=== PATIENT | female | born 1935 | race Caucasian/White ===

== ENCOUNTER 2022-02-06 06:36 | Day surgery (SDC) | payer OTHER ==
[~2022-02-06] VITALS: Ht 157.5 cm; Wt 78.0 kg
[2022-02-06] MEDS ORDERED: MIDAZOLAM HCL 5 MG/5 ML VIAL ONE (06:57)
[2022-02-06] MEDS ORDERED: fentaNYL CITRATE/PF 100 MCG/2 ML AMP ONE (06:57)
[2022-02-06 13:03] VITALS: BP_SYST 138
== END 2022-02-06 09:35 | disposition home or self-care (01) ==
LOC: SDS 06:36 → SMU 06:38 → EDSEX 09:00 → SDS 09:35
PROVIDERS: ATTEND Internal Medicine
DX: K29.50 Unspecified chronic gastritis without bleeding (principal); K22.70 Barrett's esophagus without dysplasia; A04.8 Other specified bacterial intestinal infections; I11.0 Hypertensive heart disease with heart failure; I50.9 Heart failure, unspecified; E78.5 Hyperlipidemia, unspecified; Z86.010 Personal history of colon polyps; Z88.0 Allergy status to penicillin; Z79.899 Other long term (current) drug therapy; Z20.822 Contact with and (suspected) exposure to COVID-19
CPT/HCPCS: 36415 ×2; 43239; 87426; 87081; 87070; 88305; 88312; 88313; U0003; G0378; J2250; J3010